=== PATIENT | male | born 1960 | race Caucasian/White ===

== ENCOUNTER 2023-04-15 11:31 | Observation (INO) ==
[2023-04-15] MEDS ORDERED: IOPAMIDOL 100 ML BOTTLE IV ONE (11:32)
[2023-04-15 12:44] LABS: POC Calcium, Ionized 1.12 (1.16-1.32); POC Potassium 4.6 (3.3-5.1)
[2023-04-15] MEDS ORDERED: HYDROcodone/APAP 5/325MG TABLET PO ONE (14:47)
[2023-04-15] MEDS ORDERED: ENOXAPARIN 60 MG/0.6 ML SYRINGE SQ ONE (15:13)
[2023-04-15 15:41] LABS: Basophils # (Auto) 0.06 K/mcL (0.00-0.30); Basophils % (Auto) 0.6 % (0.0-2.0); Eosinophils # (Auto) 0.08 K/mcL (0.00-0.70); Eosinophils % (Auto) 0.8 % (0.0-7.0); Hematocrit 46.4 % (40.1-51.0); Hemoglobin 15.9 g/dL (13.7-17.5); Lymphocytes # (Auto) 1.74 K/mcL (1.50-4.80); Lymphocytes % (Auto) 16.9 % (15.5-49.0); Mean Cell Volume 90.6 fL (80.0-100.0); Mean Corpuscular HGB Conc 34.3 g/dL (31.0-36.0); Mean Platelet Volume 10.3 fL (8.8-12.5); Monocytes # (Auto) 1.14 K/mcL (0.10-0.90); Monocytes % (Auto) 11.1 % (1.0-12.0); Neutrophils % (Auto) 70.2 % (38.0-78.0); Platelet Count 181 K/mcL (140-440); RBC 5.12 M/mcL (4.63-6.08); Red Cell Distribution Width 13.4 % (11.5-14.5); WBC 10.3 K/mcL (4.5-11.0)
[2023-04-15 15:51] LABS: Blood Urea Nitrogen 17 mg/dL (8-23); Calcium 9.4 mg/dL (8.6-10.4); Carbon Dioxide 27 mmol/L (22-30); Chloride 94 mmol/L (96-108); Glomerular Filtration Rate 89; Glucose 88 mg/dL (70-105)
[2023-04-15] MEDS ORDERED: ONDANSETRON 4 MG/2 ML VIAL IV PRN (17:26)
[2023-04-15] MEDS ORDERED: ACETAMINOPHEN 325 MG TABLET PO PRN (17:26)
[2023-04-15] MEDS ORDERED: WARFARIN 5 MG TABLET PO ONE (18:00)
[2023-04-15] MEDS: PHENYTOIN SOD 100 MG CAPSULE PO SCH (20:11)
[2023-04-15] MEDS: ENOXAPARIN 60 MG/0.6 ML SYRINGE SQ SCH (20:11)
[2023-04-15] MEDS: 0.9 % SODIUM CHLORIDE 10 ML SYRINGE IV SCH (20:13)
[2023-04-15] MEDS: SENNOSIDES 1 TABLET PO SCH (20:19)
[2023-04-15] MEDS: DOCUSATE SODIUM 100 MG CAPSULE PO SCH (20:19)
[2023-04-16] MEDS: 0.9 % SODIUM CHLORIDE 10 ML SYRINGE IV SCH ×3 (05:19→22:13)
[2023-04-16 07:42] LABS: Blood Urea Nitrogen 13 mg/dL (8-23); Calcium 8.6 mg/dL (8.6-10.4); Carbon Dioxide 26 mmol/L (22-30); Chloride 97 mmol/L (96-108); Glomerular Filtration Rate 99; Glucose 89 mg/dL (70-105)
[2023-04-16] MEDS: DOCUSATE SODIUM 100 MG CAPSULE PO SCH ×2 (08:25→21:16)
[2023-04-16] MEDS: ENOXAPARIN 60 MG/0.6 ML SYRINGE SQ SCH ×2 (08:25→20:23)
[2023-04-16] MEDS: PHENYTOIN SOD 100 MG CAPSULE PO SCH ×2 (08:25→20:23)
[2023-04-16 10:28] LABS: INR 1.2 (0.9-1.1); Prothrombin Time 15.6 sec (11.9-14.5)
[2023-04-16] MEDS ORDERED: WARFARIN 5 MG TABLET PO SCH (14:00)
[2023-04-16] MEDS: SENNOSIDES 1 TABLET PO SCH (21:16)
[2023-04-17] MEDS: 0.9 % SODIUM CHLORIDE 10 ML SYRINGE IV SCH (05:32)
[2023-04-17 07:51] LABS: INR 1.3 (0.9-1.1)
[2023-04-17] MEDS: PHENYTOIN SOD 100 MG CAPSULE PO SCH (08:55)
[2023-04-17] MEDS: ENOXAPARIN 60 MG/0.6 ML SYRINGE SQ SCH (08:55)
[2023-04-17] MEDS: DOCUSATE SODIUM 100 MG CAPSULE PO SCH (08:55)
== END 2023-04-17 13:05 | disposition home or self-care (01) ==
LOC: MEDSUR 11:31 → ED 11:31 → MEDSUR 17:20
PROVIDERS: ADMIT Internal Medicine; ATTEND Internal Medicine